=== PATIENT | female | born 1990 | race Caucasian/White ===

== ENCOUNTER 2016-11-21 18:30 | Emergency (ER) | payer OTHER ==
[~2016-11-21] VITALS: Ht 172.7 cm; Wt 81.7 kg
[2016-11-21] MEDS ORDERED: KEFLEX500 MG PO (19:17)
[2016-11-21] MEDS ORDERED: SERTRALINE HCL50 MG PO (19:17)
[2016-11-21] MEDS ORDERED: VICODIN 5-3001 EACH PO (19:17)
[2016-11-21] MEDS ORDERED: VISTARIL 25 MG25 M1 PO (19:18)
[2016-11-21 19:32] LABS: URINE BILIRUBIN NEGATIVE (Negative); URINE BLOOD TRACE (Negative); URINE COLOR YELLOW; URINE GLUCOSE-RANDOM* NEGATIVE (Negative); URINE KETONES NEGATIVE (Negative); URINE NITRITE NEGATIVE (Negative); URINE PROTEIN (DIPSTICK) NEGATIVE (Negative); URINE SPECIFIC GRAVITY <= 1.005 (1.003-1.035); URINE UROBILINOGEN 0.2 E.U./dl (0.2-1.0)
[2016-11-21 19:43] LABS: ABSOLUTE NEUTROPHILS 3.3 thou/uL (1.4-8.2); BASOPHILS 0.8 % (0.0-2.0); EOSINOPHILS 1.3 % (0.0-3.0); HEMATOCRIT 37.3 % (37.0-47.0); HEMOGLOBIN 12.8 gm/dL (12.0-15.0); LYMPHOCYTES 29.6 % (24.0-44.0); MANUAL DIFF NO; MCH 29.8 pg (26.0-34.0); MCHC 34.3 g/dL (28.0-37.0); MCV 86.9 fL (80.0-100.0); MONOCYTES 10.5 % (1.0-8.0); PLATELET COUNT 180 thou/uL (150-400); POLYS 57.8 % (36.0-66.0); RBC 4.29 mil/uL (4.20-5.00); RDW 12.6 % (10.5-14.5); WBC 5.7 thou/uL (4.0-11.0)
[2016-11-21 19:51] LABS: CREATININE 0.7 mg/dL (0.6-1.0)
[2016-11-21] MEDS ORDERED: NORCO 5-325 TA1 EACH PO (19:56)
[2016-11-21] MEDS ORDERED: CLEOCIN HCL150 MG PO (19:56)
[2016-11-21 20:01] VITALS: BP 122/75
== END 2016-11-21 20:05 | disposition home or self-care (01) ==
LOC: ER 18:30
PROVIDERS: Emergency Medicine
DX: K02.9 Dental caries, unspecified (principal); R53.83 Other fatigue; F41.9 Anxiety disorder, unspecified; Z90.49 Acquired absence of other specified parts of digestive tract; Z88.1 Allergy status to other antibiotic agents; Z88.0 Allergy status to penicillin